=== PATIENT | male | born 1980 | race Caucasian/White ===

== ENCOUNTER 2018-08-12 06:56 | Emergency (ER) | payer OTHER ==
[2018-08-12 07:44] VITALS: TEMP 99.5; BMI 30.7
[2018-08-12] MEDS ORDERED: ACETAMINOPHEN 500 MG TABLET (FP) PO ONE (07:55)
[2018-08-12] MEDS ORDERED: ACETAMINOPHEN 325 MG TABLET (FP) ONE (08:00)
--- NOTE | 2018-08-12 08:09 | PDOC ---
History of Present Illness - General Chief Complaint: Cold Symptoms Stated Complaint: HEADACHE,FEVER Time Seen by Provider: 08/12/18 07:43 History Source: Patient Exam Limitations: No Limitations - History of Present Illness Initial Comments: 08/12/18 08:04 38-year-old male with history of hypertension presents to ED with complaints of headache, sore throat, fever, myalgia, dry hacking cough and generalized weakness since yesterday morning. Patient denies abdominal pain, chest pain, difficulty breathing, diarrhea, urinary complaints, rash, visual changes, nausea , recent travel, recent sick contacts. Timing/Duration: reports: yesterday Severity: reports: mild, moderate Possible Cause: Yes: no prior episodes Modifying Factors: improves with: coughing Associated Symptoms: reports: cough, fever/chills, headache, muscle aches, sore throat Past History - Travel Traveled outside of the country in the last 30 days: No - Past Medical History Allergies/Adverse Reactions: Allergies Allergy/AdvReac Type Severity Reaction Status Date / Time No Known Allergies Allergy Verified 08/12/18 07:21 Home Medications: Ambulatory Orders Hydrochlorothiazide [Hctz -] 25 mg PO DAILY 08/12/18 Oseltamivir Phosphate [Tamiflu -] 75 mg PO BID #10 capsule 08/12/18 COPD: No CHF: No Disorders: No HTN: Yes Lung CA: No - Surgical History Cardiac Surgery: No - Immunization History Immunization Up to Date: No - Suicide/Smoking/Psychosocial Hx Smoking History: Never smoked Have you smoked in the past 12 months: No Information on smoking cessation initiated: No Hx Alcohol Use: No Drug/Substance Use Hx: No Patient Lives Alone: No Lives with/in: spouse/SO Review of Systems - Review of Systems Able to Perform ROS?: Yes Constitutional: Yes: Chills, Fever HEENTM: Yes: Throat Pain Respiratory: Yes: Cough Cardiac (ROS): No: Symptoms Reported ABD/GI: No: Symptoms Reported : No: Symptoms Reported Musculoskeletal: Yes: Joint Pain, Muscle Pain Integumentary: No: Symptoms Reported Neurological: Yes: Headache Endocrine: No: Symptoms Reported *Physical Exam - Vital Signs Last Vital Signs Temp Pulse Resp BP Pulse Ox 99.5 F 95 H 16 164/114 H 98 08/12/18 07:22 08/12/18 07:22 08/12/18 07:22 08/12/18 07:22 08/12/18 07:22 - Physical Exam General Appearance: Yes: Nourished, Appropriately Dressed. No: Apparent Distress HEENT: positive: EOMI, PACO, TMs Normal, Pharynx Normal. negative: Pale Conjunctivae Neck: positive: Supple Respiratory/Chest: positive: Lungs Clear, Normal Breath Sounds. negative: Respiratory Distress, Accessory Muscle Use Cardiovascular: positive: Regular Rhythm, Regular Rate. negative: Murmur Gastrointestinal/Abdominal: positive: Soft. negative: Tenderness Extremity: positive: Normal Inspection Integumentary: positive: Normal Color, Warm, Moist Neurologic: positive: Normal Mood/Affect, Motor Strength 5/5 (ambulatory) Moderate Sedation - Procedure Monitoring Vital Signs: Procedure Monitoring Vital Signs Temperature 99.5 F 08/12/18 07:22 Pulse Rate 95 H 08/12/18 07:22 Respiratory Rate 16 08/12/18 07:22 Blood Pressure 164/114 H 08/12/18 07:22 O2 Sat by Pulse Oximetry (%) 98 08/12/18 07:22 Medical Decision Making - Medical Decision Making 08/12/18 08:07 Chief complaint: Fever cough headache and body aches since yesterday morning. Patient with history of hypertension but did not take his hydrochlorothiazide this morning Exam: No acute findings, patient appears with flulike symptoms with noted dry hacking cough and glassy eye appearance Plan: Tylenol rapid strep and influenza swab obtained 08/12/18 08:50 Influenza A+. Rapid strep pending. Will order Tamiflu. Patient also given instructions to take his hydrochlorothiazide upon discharge. The patient understands to rest drink plenty of fluids and take Motrin and Tylenol as needed for fever and myalgia. 08/12/18 08:57 Laboratory Tests 08/12/18 08/12/18 07:45 07:47 Influenza A (Rapid) Positive A Influenza B (Rapid) Negative Group A Strep Rapid Pending *DC/Admit/Observation/Transfer Diagnosis at time of Disposition: Influenza A - Discharge Dispostion Disposition: HOME Condition at time of disposition: Good - Prescriptions Prescriptions: Oseltamivir Phosphate [Tamiflu -] 75 mg PO BID #10 capsule - Referrals - Patient Instructions Printed Discharge Instructions: DI for Influenza -- Adult Additional Instructions: Please drink plenty of fluids and rest and take Tamiflu. Please also take Motrin and Tylenol every 6 hours for body aches and fever. Please take your blood pressure medication hydrochlorothiazide every day as prescribed. - Post Discharge Activity
[2018-08-12 09:17] VITALS: BP 160/95; PULSE 90
== END 2018-08-12 09:17 | disposition home or self-care (01) ==
LOC: JER 06:56
DX: J09.X2 Influenza due to identified novel influenza A virus with other respiratory manifestations (principal); I10 Essential (primary) hypertension
CPT/HCPCS: 87070; 87804; 87880; 99281-25